=== PATIENT | female | born 1965 | race Caucasian/White ===

== ENCOUNTER 2024-02-23 15:45 | Emergency (ER) | payer OTHER ==
[2024-02-23 15:55] LABS: Glucose,Whole Blood 84 mg/dL (70-110)
--- NOTE | 2024-02-23 16:32 | ED ---
Recheck HPI - General Chief Complaint: Recheck/Abnormal Lab/Rx Stated Complaint: Low blood sugar-diabetic Time Seen by Provider: 02/23/24 16:28 Source: patient, family, RN notes reviewed Mode of arrival: wheelchair Limitations: no limitations - History of Present Illness Initial Comments: 58-year-old female presented to the ER with a chief complaint of hypoglycemia. Patient is a type I a diabetic and is insulin-dependent. She normally self injects about 21 units of insulin but today while out at a family picnic believes she may have over dosed her injection. She states that she normally wears reading glasses but did not have her glasses with her and believes she accidentally gave herself 31 units instead. She injected her self around 1:20pm and family reports about 40 minutes later they found her slumped over in her car. Family states they checked her CGM and it was reading 29. Family gave her orange juice and sugary snacks to increase her blood sugar. about 1 hour later, family reports she came around and they checked her glucose adn it was 88. She came to the ER for evaluation. She denies any fevers, chills, night sweats, cough, congestion, chest pain, shortness of breath, abdominal pain, constipation/diarrhea, urinary complaints or peripheral edema. - Related Data Home Medications Medication Instructions Recorded Confirmed Atorvastatin [Lipitor] 20 mg PO DAILY 04/08/19 04/08/19 INSULIN LISPRO (humaLOG) [humaLOG] 4 units SQ TID 04/08/19 04/08/19 Insulin Glargine [Lantus] 6 units SQ DAILY 04/08/19 04/08/19 Omeprazole [PriLOSEC] 10 mg PO DAILY 04/08/19 04/08/19 lisinopriL 20 mg PO DAILY 04/08/19 04/08/19 Allergies Allergy/AdvReac Type Severity Reaction Status Date / Time Penicillins Allergy Unknown Verified 02/23/24 15:50 Review of Systems ROS Statement: Those systems with pertinent positive or pertinent negative responses have been documented in the HPI. ROS Other: All systems not noted in ROS Statement are negative. Past Medical History Past Medical History: Diabetes Mellitus Additional Past Medical History / Comment(s): type 1A diabetes, low blood pressure History of Any Multi-Drug Resistant Organisms: None Reported Past Surgical History: No Surgical Hx Reported Past Anesthesia/Blood Transfusion Reactions: No Reported Reaction Past Psychological History: No Psychological Hx Reported Smoking Status: Never smoker Past Alcohol Use History: None Reported Past Drug Use History: None Reported General Exam Limitations: no limitations General appearance: alert, in no apparent distress Respiratory exam: Present: normal lung sounds bilaterally. Absent: respiratory distress, wheezes, rales, rhonchi, stridor Cardiovascular Exam: Present: regular rate, normal rhythm, normal heart sounds. Absent: systolic murmur, diastolic murmur, rubs, gallop, clicks GI/Abdominal exam: Present: soft, normal bowel sounds. Absent: distended, tenderness, guarding, rebound, rigid Extremities exam: Present: normal inspection, full ROM, normal capillary refill. Absent: tenderness, pedal edema, joint swelling, calf tenderness Neurological exam: Present: alert, oriented X3, CN II-XII intact Skin exam: Present: warm, dry, intact, normal color. Absent: rash Course Vital Signs 02/23/24 02/23/24 02/23/24 15:47 17:33 18:26 Temperature 98.1 F 98.2 F Pulse Rate 129 H 96 90 Respiratory 16 18 18 Rate Blood Pressure 149/86 161/93 146/81 O2 Sat by Pulse 95 99 100 Oximetry Medical Decision Making - Medical Decision Making Was pt. sent in by a medical professional or institution ([facility], ENTRY LEVEL SALES ASSOCIATE, urgent care, hospital, or senior living...) When possible be specific @ -No Did you speak to anyone other than the patient for history (EMS, parent, family, police, friend...)? What history was obtained from this source @ -No Did you review nursing and triage notes (agree or disagree)? Why? @ -I reviewed and agree with nursing and triage notes Were old charts reviewed (outside hosp., previous admission, EMS record, old EKG, old radiological studies, urgent care reports/EKG's, senior living records)? Report findings @ -No old charts were reviewed Differential Diagnosis (chest pain, altered mental status, abdominal pain women, abdominal pain men, vaginal bleeding, weakness, fever, dyspnea, syncope, headache, dizziness, GI bleed, back pain, seizure, CVA, palpatations, mental health, musculoskeletal)? @ -[Hyperglycemia, hypoglycemia, DKA this list is not meant to be all-inclusive EKG interpreted by me (3pts min.). @ -As above X-rays interpreted by me (1pt min.). @ -None done CT interpreted by me (1pt min.). @ -None done U/S interpreted by me (1pt. min.). @ -None done What testing was considered but not performed or refused? (CT, X-rays, U/S, labs)? Why? @ -None What meds were considered but not given or refused? Why? @ -None Did you discuss the management of the patient with other professionals (professionals i.e. , PA, ENTRY LEVEL SALES ASSOCIATE, lab, RT, psych nurse, social insurance administrator, machine presser, te acher, surveillance dual rate officer, director of casework)? Give summary @ -No Was smoking cessation discussed for >3mins.? @ -No Was critical care preformed (if so, how long)? @ -No Were there social determinants of health that impacted care today? How? (Homelessness, low income, unemployed, alcoholism, drug addiction, transportation, low edu. Level, literacy, decrease access to med. care, fdc, rehab)? @ -No Was there de-escalation of care discussed even if they declined (Discuss DNR or withdrawal of care, Hospice)? DNR status @ -No What co-morbidities impacted this encounter? (DM, HTN, Smoking, COPD, CAD, C ancer, CVA, ARF, Chemo, Hep., AIDS, mental health diagnosis, sleep apnea, morbid obesity)? @ -Type 1 diabetes Was patient admitted / discharged? Hospital course, mention meds given and route, prescriptions, significant lab abnormalities, going to OR and other pertinent info. @ -Discharge. 58-year-old female presented to the ER with a chief complaint of low blood sugars. History and physical exam completed. Vitals stable. Patient no signs acute distress and nontoxic-appearing. Laboratory studies obtained unimpressive. Repeat BS 212. Patient remained asympotmatic throughout monitoring in ER. Results discussed with patient, all questions answered. I advised close follow-up with PCP. Return parameters discussed. Patient discharged in stable condition. Patient verbally expressed understanding and agreement with care plan. Case discussed with ED attending, Jazmin Deutsch. Undiagnosed new problem with uncertain prognosis? @ -No Drug Therapy requiring intensive monitoring for toxicity (Heparin, Nitro, Insulin, Cardizem)? @ -No Were any procedures done? @ -No Diagnosis/symptom? @ -hypoglycemia Acute, or Chronic, or Acute on Chronic? @ -acute Uncomplicated (without systemic symptoms) or Complicated (systemic symptoms)? @ -uncomplicated Side effects of treatment? @ -No Exacerbation, Progression, or Severe Exacerbation? @ -No Poses a threat to life or bodily function? How? (Chest pain, USA, [place], pneumonia, PE, COPD, DKA, ARF, appy, cholecystitis, CVA, Diverticulitis, Homicidal, Suicidal, threat to staff... and all critical care pts) @ -No - Lab Data Result diagrams: 02/23/24 16:58 02/23/24 16:58 Lab Results 02/23/24 02/23/24 02/23/24 Range/Units 15:54 16:58 16:58 WBC 12.8 H (3.8-10.6) k/uL RBC 4.08 (3.80-5.40) m/uL Hgb 12.5 (11.4-16.0) gm/dL Hct 38.6 (34.0-46.0) % MCV 94.6 (80.0-100.0) fL MCH 30.6 (25.0-35.0) pg MCHC 32.3 (31.0-37.0) g/dL RDW 13.0 (11.5-15.5) % Plt Count 310 (150-450) k/uL MPV 7.6 Neutrophils % 84 % Lymphocytes % 11 % Monocytes % 4 % Eosinophils % 0 % Basophils % 0 % Neutrophils # 10.8 H (1.3-7.7) k/uL Lymphocytes # 1.4 (1.0-4.8) k/uL Monocytes # 0.4 (0-1.0) k/uL Eosinophils # 0.0 (0-0.7) k/uL Basophils # 0.1 (0-0.2) k/uL Sodium (137-145) mmol/L Potassium (3.5-5.1) mmol/L Chloride (98-107) mmol/L Carbon Dioxide (22-30) mmol/L Anion Gap mmol/L BUN (7-17) mg/dL Creatinine (0.52-1.04) mg/dL Est GFR (CKD-EPI)AfAm (>60 ml/min/1.73 sqM) Est GFR (CKD-EPI)NonAf (>60 ml/min/1.73 sqM) Glucose (74-99) mg/dL POC Glucose (mg/dL) 84 (70-110) mg/dL POC Glu Senior Applications Architect ID Calcium (8.4-10.2) mg/dL Total Bilirubin (0.2-1.3) mg/dL AST (14-36) U/L ALT (4-34) U/L Alkaline Phosphatase (38-126) U/L Total Protein (6.3-8.2) g/dL Albumin (3.5-5.0) g/dL Urine Color Light Yellow Urine Appearance Clear (Clear) Urine pH 5.0 (5.0-8.0) Ur Specific [place] 1.022 (1.001-1.035) Urine Protein Trace H (Negative) Urine Glucose (UA) Negative (Negative) Urine Ketones Negative (Negative) Urine Blood Negative (Negative) Urine Nitrite Negative (Negative) Urine Bilirubin Negative (Negative) Urine Urobilinogen <2.0 (<2.0) mg/dL Ur Leukocyte Esterase Negative (Negative) 02/23/24 02/23/24 Range/Units 16:58 17:31 WBC (3.8-10.6) k/uL RBC (3.80-5.40) m/uL Hgb (11.4-16.0) gm/dL Hct (34.0-46.0) % MCV (80.0-100.0) fL MCH (25.0-35.0) pg MCHC (31.0-37.0) g/dL RDW (11.5-15.5) % Plt Count (150-450) k/uL MPV Neutrophils % % Lymphocytes % % Monocytes % % Eosinophils % % Basophils % % Neutrophils # (1.3-7.7) k/uL Lymphocytes # (1.0-4.8) k/uL Monocytes # (0-1.0) k/uL Eosinophils # (0-0.7) k/uL Basophils # (0-0.2) k/uL Sodium 138 (137-145) mmol/L Potassium 4.1 (3.5-5.1) mmol/L Chloride 103 (98-107) mmol/L Carbon Dioxide 23 (22-30) mmol/L Anion Gap 12 mmol/L BUN 32 H (7-17) mg/dL Creatinine 0.82 (0.52-1.04) mg/dL Est GFR (CKD-EPI)AfAm >90 (>60 ml/min/1.73 sqM) Est GFR (CKD-EPI)NonAf 80 (>60 ml/min/1.73 sqM) Glucose 146 H (74-99) mg/dL POC Glucose (mg/dL) 212 H (70-110) mg/dL POC Glu Senior Applications Architect ID Fletcher Davis Calcium 9.2 (8.4-10.2) mg/dL Total Bilirubin 0.4 (0.2-1.3) mg/dL AST 31 (14-36) U/L ALT 22 (4-34) U/L Alkaline Phosphatase 67 (38-126) U/L Total Protein 7.2 (6.3-8.2) g/dL Albumin 4.4 (3.5-5.0) g/dL Urine Color Urine Appearance (Clear) Urine pH (5.0-8.0) Ur Specific [place] (1.001-1.035) Urine Protein (Negative) Urine Glucose (UA) (Negative) Urine Ketones (Negative) Urine Blood (Negative) Urine Nitrite (Negative) Urine Bilirubin (Negative) Urine Urobilinogen (<2.0) mg/dL Ur Leukocyte Esterase (Negative) - EKG Data -: EKG Interpreted by Me EKG Comments: EKG taken at 17: 02 showing a sinus rhythm with T wave inversion in lead III. No other acute ST segment or T wave abnormalities. Ventricular rate 86, AL interval 154, QRS duration 86, QT/QTc 372/415. Disposition Clinical Impression: Type 1 diabetes mellitus, Hypoglycemia Disposition: HOME SELF-CARE Condition: Stable Instructions (If sedation given, give patient instructions): Hypoglycemia in a Person with Diabetes (DC) Additional Instructions: Please monitor sugars closely. Follow-up with PCP in the next 1 to 2 days. R eturn to the ER with any new or worsening concerns. Is patient prescribed a controlled substance at d/c from ED?: No Referrals: Adelina Forrester DO [Primary Care Provider] - 1-2 days Time of Disposition: 18:13
[2024-02-23 17:32] LABS: Glucose,Whole Blood 212 mg/dL (70-110)
[2024-02-23 17:35] VITALS: RESP 18
[2024-02-23 17:37] LABS: ALT 22 U/L (4-34); AST 31 U/L (14-36); African American GFR (CKD) >90 (>60 ml/min/1.73 sqM); Albumin 4.4 g/dL (3.5-5.0); Alkaline Phosphatase 67 U/L (38-126); Anion Gap 12 mmol/L; Blood Urea Nitrogen 32 mg/dL (7-17); Calcium 9.2 mg/dL (8.4-10.2); Carbon Dioxide 23 mmol/L (22-30); Chloride 103 mmol/L (98-107); Glucose 146 mg/dL (74-99); Non-African American GFR(CKD) 80 (>60 ml/min/1.73 sqM); Potassium 4.1 mmol/L (3.5-5.1); Sodium 138 mmol/L (137-145); Total Bilirubin 0.4 mg/dL (0.2-1.3); Total Protein 7.2 g/dL (6.3-8.2)
[2024-02-23 17:43] LABS: Appearance,Urine Clear (Clear); Bilirubin,Urine Negative (Negative); Blood,Urine Negative (Negative); Color,Urine Light Yellow; Glucose,Urine (UA) Negative (Negative); Ketones,Urine Negative (Negative); Leukocyte Esterase,Urine Negative (Negative); Nitrite,Urine Negative (Negative); Protein,Urine Trace (Negative); Specific Gravity,Urine 1.022 (1.001-1.035); Urobilinogen,Urine <2.0 mg/dL (<2.0)
[2024-02-23 17:50] LABS: Basophils # (A) 0.1 k/uL (0-0.2); Basophils % (A) 0 %; Eosinophils % (A) 0 %; HCT 38.6 % (34.0-46.0); HGB 12.5 gm/dL (11.4-16.0); Lymphocytes # (A) 1.4 k/uL (1.0-4.8); Lymphocytes % (A) 11 %; MCH 30.6 pg (25.0-35.0); MCHC 32.3 g/dL (31.0-37.0); MCV 94.6 fL (80.0-100.0); Mean Platelet Volume 7.6; Monocytes # (A) 0.4 k/uL (0-1.0); Monocytes % (A) 4 %; Neutrophils # (A) 10.8 k/uL (1.3-7.7); Neutrophils % (A) 84 %; Platelet Count 310 k/uL (150-450); RBC 4.08 m/uL (3.80-5.40); WBC 12.8 k/uL (3.8-10.6)
[2024-02-23 18:53] VITALS: BP 146/81; PULSE 90; TEMP 98.2
== END 2024-02-23 18:27 | disposition home or self-care (01) ==
LOC: EC 15:45
DX: E10.649 Type 1 diabetes mellitus with hypoglycemia without coma (principal); Z79.4 Long term (current) use of insulin; Z88.0 Allergy status to penicillin; Z79.899 Other long term (current) drug therapy
CPT/HCPCS: 36415; 80053; 81003; 85025; 93005; 99283

== ENCOUNTER 2024-09-17 16:36 | Emergency (ER) | payer OTHER ==
[2024-09-17 16:58] VITALS: TEMP 98.6
--- NOTE | 2024-09-17 17:12 | ED ---
Fall HPI - General Source: patient, RN notes reviewed Mode of arrival: ambulatory - History of Present Illness MD Complaint: fall Onset/Timin -: hour(s) Time: 16:20 Fall From: standing When Fall Occurred: 1 hour OUTDOOR FITNESS TRAINER <Domingo Mills - Last Filed: 09/17/24 17:11> <Sherie Askew - Last Filed: 09/21/24 06:12> - General Chief Complaint: Fall Stated Complaint: SLIP ON ICE Time Seen by Provider: 09/17/24 16:53 - History of Present Illness Initial Comments: This is a 59-year-old female complaining of right wrist pain/injury (11/23) at 4:20 PM today. Patient states she had an accidental slip on the ice causing her to fall and catch her self onto her right hand with subsequent pain. Patient states pain is worse with movement (/10). Denies distal motor or sensation c hanges. (Domingo Mills) 59-year-old female presents to the emergency department for evaluation of right wrist injury. Patient reports that she slipped on ice and fell. She states that she fell on her outstretched hand. She reports pain with movement of the wrist. Denies any injury to her fingers, elbow. Denies head injury. Denies blood thinners. (Sherie Askew) - Related Data Home Medications Medication Instructions Recorded Confirmed Atorvastatin [Lipitor] 20 mg PO DAILY 04/08/19 04/08/19 INSULIN LISPRO (humaLOG) [humaLOG] 4 units SQ TID 04/08/19 04/08/19 Insulin Glargine [Lantus] 6 units SQ DAILY 04/08/19 04/08/19 Omeprazole [PriLOSEC] 10 mg PO DAILY 04/08/19 04/08/19 lisinopriL 20 mg PO DAILY 04/08/19 04/08/19 Allergies Allergy/AdvReac Type Severity Reaction Status Date / Time Penicillins Allergy Unknown Verified 09/17/24 16:58 Review of Systems ROS Other: All systems not noted in ROS Statement are negative. <Domingo Mills - Last Filed: 09/17/24 17:11> ROS Other: All systems not noted in ROS Statement are negative. <Sherie Askew - Last Filed: 12/09/24 06:12> ROS Statement: Those systems with pertinent positive or pertinent negative responses have been documented in the HPI. Past Medical History Past Medical History: Diabetes Mellitus Additional Past Medical History / Comment(s): type 1A diabetes, low blood pressure History of Any Multi-Drug Resistant Organisms: None Reported Past Surgical History: No Surgical Hx Reported Past Anesthesia/Blood Transfusion Reactions: No Reported Reaction Past Psychological History: No Psychological Hx Reported Smoking Status: Never smoker Past Alcohol Use History: None Reported Past Drug Use History: None Reported <Domingo Mills - Last Filed: 09/17/24 17:11> General Exam Limitations: no limitations <Domingo Mills - Last Filed: 09/17/24 17:11> Limitations: no limitations General appearance: alert, in no apparent distress Head exam: Present: atraumatic, normocephalic, normal inspection Eye exam: Present: normal appearance, PERRL, EOMI. Absent: scleral icterus, conjunctival injection, periorbital swelling ENT exam: Present: normal exam, mucous membranes moist Extremities exam: Present: tenderness (Right wrist), normal capillary refill, other (Radial pulses 2+, swelling to the right wrist). Absent: full ROM (Decreased range of motion of the right wrist due to pain), pedal edema, joint swelling, calf tenderness Neurological exam: Present: alert, oriented X3 Psychiatric exam: Present: normal affect, normal mood Skin exam: Present: warm, dry, intact, normal color. Absent: rash <Sherie Askew - Last Filed: 09/21/24 06:12> - General Exam Comments Initial Comments: Visual Physical Exam Vital signs reviewed General: Well-appearing, nontoxic, no acute distress. Head: Normocephalic, atraumatic Eyes: PERRLA, EOMI ENT: Airway patent Chest: Nonlabored breathing Skin: No visual rash, normal skin tone Neuro: Alert and oriented 3 Musculoskeletal: No gross abnormalities (Domingo Mills) Course Vital Signs 09/17/24 09/17/24 16:55 19:11 Temperature 98.6 F Pulse Rate 91 87 Respiratory 18 20 Rate Blood Pressure 144/77 154/99 O2 Sat by Pulse 99 98 Oximetry Medical Decision Making <Domingo Mills - Last Filed: 09/17/24 17:11> <Sherie Askew - Last Filed: 09/21/24 06:12> - Medical Decision Making I completed the quick note portion of this chart signed JOSE RAFAEL Suero (Domingo Mills) Was pt. sent in by a medical professional or institution ([facility], LICENSED PHYSICAL THERAPIST ASSISTANT, urgent care, hospital, or care home...) When possible be specific @ -[No] Did you speak to anyone other than the patient for history (EMS, parent, family, police, friend...)? What history was obtained from this source @ -[No] Did you review nursing and triage notes (agree or disagree)? Why? @ -[I reviewed and agree with nursing and triage notes] Were old charts reviewed (outside hosp., previous admission, EMS record, old EKG, old radiological studies, urgent care reports/EKG's, care home records)? Report findings @ -[No old charts were reviewed] Differential Diagnosis (chest pain, altered mental status, abdominal pain women, abdominal pain men, vaginal bleeding, weakness, fever, dyspnea, syncope, headache, dizziness, GI bleed, back pain, seizure, CVA, palpatations, mental health, musculoskeletal)? @ -Differential Musculoskeletal Muscular strain, contusion, ligament sprain, fracture, arthritis, septic arthritis, bursitis, cellulitis, muscle spasm, nerve compression, DVT, arterial occlusion, herpes zoster, electrolyte abnormality, tumor.... This is not meant to be in all inclusive list EKG interpreted by me (3pts min.). @ -None X-rays interpreted by me (1pt min.). @ -X-ray of the wrist shows a nondisplaced distal radius fracture CT interpreted by me (1pt min.). @ -[None done] U/S interpreted by me (1pt. min.). @ -[None done] What testing was considered but not performed or refused? (CT, X-rays, U/S, labs)? Why? @ -[None] What meds were considered but not given or refused? Why? @ -[None] Did you discuss the management of the patient with other professionals (professionals i.e. [facility], LICENSED PHYSICAL THERAPIST ASSISTANT, lab, RT, psych nurse, nephrology social worker, home inspector, te acher, correctional security officer, case reviewer)? Give summary @ -[No] Was smoking cessation discussed for >3mins.? @ -[No] Was critical care preformed (if so, how long)? @ -[No] Were there social determinants of health that impacted care today? How? (Homelessness, low income, unemployed, alcoholism, drug addiction, transportation, low edu. Level, literacy, decrease access to med. care, fpc, rehab)? @ -[No] Was there de-escalation of care discussed even if they declined (Discuss DNR or withdrawal of care, Hospice)? DNR status @ -[No] What co-morbidities impacted this encounter? (DM, HTN, Smoking, COPD, CAD, Cancer, CVA, ARF, Chemo, Hep., AIDS, mental health diagnosis, sleep apnea, morbid obesity)? @ -[None] Was patient admitted / discharged? Hospital course, mention meds given and route, prescriptions, significant lab abnormalities, going to OR and other pertinent info. @ -[Discharged. Patient presented to the emergency department for evaluation of right wrist injury from fall. Patient distally neurovascularly intact. X- rays obtained revealing a nondisplaced distal radius fracture. Patient placed in a sugar-tong splint. She was provided a sling. She was advised to follow-up with orthopedics. Patient understanding agreeable with plan. Patient stable at time of discharge. Case discussed with Dr. Perez] Undiagnosed new problem with uncertain prognosis? @ -[No] Drug Therapy requiring intensive monitoring for toxicity (Heparin, Nitro, Insulin, Cardizem)? @ -[No] Were any procedures done? @ -[No] Diagnosis/symptom? @ -Radius fracture Acute, or Chronic, or Acute on Chronic? @ -Acute Uncomplicated (without systemic symptoms) or Complicated (systemic symptoms)? @ -Uncomplicated Side effects of treatment? @ -No Exacerbation, Progression, or Severe Exacerbation? @ -No Poses a threat to life or bodily function? How? (Chest pain, [place], [place], pneumonia, PE, COPD, DKA, ARF, appy, cholecystitis, CVA, Diverticulitis, Homicidal, Suicidal, threat to staff... and all critical care pts) @ -No (Sherie Askew) Disposition <Domingo Mills - Last Filed: 09/17/24 17:11> Is patient prescribed a controlled substance at d/c from ED?: No <Sherie Askew - Last Filed: 09/21/24 06:12> Clinical Impression: Fall, Distal radius fracture Disposition: HOME SELF-CARE Condition: Stable Instructions (If sedation given, give patient instructions): Wrist Fracture in Adults (ED) Additional Instructions: Please follow up with orthopedics. Rest, ice, elevate the arm and wrist. Utilize anti-inflammatory medication like ibuprofen. Return to the emergency department for new or worsening symptoms. Referrals: Anu Rendon DO [Primary Care Provider] - 1-2 days
--- NOTE | 2024-09-17 18:14 | XR ---
EXAMINATION TYPE: XR wrist complete RT DATE OF EXAM: 09/17/2024 5:56 PM COMPARISON: None. CLINICAL INDICATION: Female, 59 years old with history of fall, pain TECHNIQUE: 4 view(s) obtained. FINDINGS: There is a transverse fracture of the distal metaphyseal radius. No suspicious angulation identified. Prominent soft tissue swelling is over the fracture site. Occult fracture of the ulnar styloid is not excluded. No additional fractures evident. Joint spaces a ppear preserved. Follow up exams can be performed 7-10 days from acute trauma for continued pain. Nuclear medicine bon e scan could be performed for pain at the anatomic snuff box. IMPRESSION: 1. Transverse fracture distal metaphyseal radius with prominent soft tissue swelling. [facility], Workstation: [facility], 09/17/2024 6:12 PM
[2024-09-17 19:13] VITALS: BP 154/99; PULSE 87; RESP 20
== END 2024-09-17 19:13 | disposition home or self-care (01) ==
LOC: EC 16:36
DX: S52.501A Unspecified fracture of the lower end of right radius, initial encounter for closed fracture (principal); Z88.0 Allergy status to penicillin; W00.0XXA Fall on same level due to ice and snow, initial encounter
CPT/HCPCS: 29125; 99283